=== PATIENT | male | born 1935 | race Caucasian/White ===

== ENCOUNTER → 2019-01-08 | Outpatient (CLI) | payer OTHER | LOC: SPEECH 08:48 → RAD 08:48 | DX: R13.19 Other dysphagia (principal); M47.812 Spondylosis without myelopathy or radiculopathy, cervical region; M48.02 Spinal stenosis, cervical region ==

== ENCOUNTER → 2019-01-16 | Outpatient (CLI) | payer OTHER, BC | LOC: RAD 08:50 | DX: R13.19 Other dysphagia (principal) ==